=== PATIENT | male | born 1970 | race Caucasian/White ===

== ENCOUNTER 2020-02-14 14:10 | Emergency (ER) | payer MEDICAID ==
[~2020-02-14] VITALS: Ht 182.9 cm; Wt 73.0 kg
[2020-02-14] MEDS ORDERED: ONDANSETRON HCL 4MG/2ML INJ IV STA (17:46)
[2020-02-14] MEDS ORDERED: MAGNESIUM/ALUMINUM HYDROXIDE/SIMETHICONE 30ML UDC PO STA (17:46)
[2020-02-14] MEDS ORDERED: FAMOTIDINE 20MG/2ML VIAL IV STA (17:46)
[2020-02-14] MEDS ORDERED: VISCOUS LIDOCAINE 2% 15 ML UDC PO STA (17:46)
[2020-02-14] MEDS ORDERED: SODIUM CHLORIDE 0.9% 1,000 ML IV ONE (17:46)
[2020-02-14 18:26] LABS: BASOPHILS % 0.7 % (0.0-2.0); EOSINOPHILS % 1.2 % (0.0-5.0); HEMATOCRIT. 48.9 % (42.0-52.0); HEMOGLOBIN. 16.8 g/dL (14.0-18.0); LYMPHOCYTES % 51.3 % (20.0-50.0); MEAN CORPUSCULAR HEMOGLOBIN 37.6 pg (28.0-32.0); MEAN CORPUSCULAR VOLUME 109.3 fL (80.0-94.0); NEUTROPHILS % 38.8 % (40.0-76.0); RED BLOOD CELL COUNT 4.47 mill/uL (4.7-6.1); RED CELL DISTRIBUTION WIDTH 13.2 % (11.6-14.6)
[2020-02-14 18:58] LABS: CHLORIDE 105 mEq/L (98-107)
[2020-02-14 19:54] LABS: PLATELET 155 x1000/uL (130-400)
[2020-02-14 19:55] LABS: MEAN PLATELET VOLUME 8.3 fl (7.4-10.4)
[2020-02-14 20:07] VITALS: BP 138/71
== END 2020-02-14 20:09 | disposition home or self-care (01) ==
LOC: ER 14:10
DX: R10.84 Generalized abdominal pain (principal); R79.89 Other specified abnormal findings of blood chemistry; R03.0 Elevated blood-pressure reading, without diagnosis of hypertension
CPT/HCPCS: 36415; 74176; 80053; 83690; 85025; 96361; 96374; 96375; 99284; J2405; J3490; J7030

== ENCOUNTER 2021-01-19 14:57 | Emergency (ER) | payer MEDICAID ==
[~2021-01-19] VITALS: Ht 180.3 cm; Wt 80.0 kg
[2021-01-19] MEDS ORDERED: HYDROCODONE/ACETAMINOPHEN 5/325MG TABLET PO ONE ×2 (17:30→19:45)
[2021-01-19 17:34] LABS: BASOPHILS % 0.4 % (0.0-2.0); HEMATOCRIT. 50.3 % (42.0-52.0); HEMOGLOBIN. 16.9 g/dL (14.0-18.0); LYMPHOCYTES % 53.1 % (20.0-50.0); MEAN CORPUSCULAR HEMOGLOBIN 35.3 pg (28.0-32.0); MEAN CORPUSCULAR VOLUME 105.4 fL (80.0-94.0); MEAN PLATELET VOLUME 7.2 fl (7.4-10.4); MONOCYTES % 7.3 % (2.0-8.0); NEUTROPHILS % 37.2 % (40.0-76.0); PLATELET 129 x1000/uL (130-400); RED BLOOD CELL COUNT 4.77 mill/uL (4.7-6.1); RED CELL DISTRIBUTION WIDTH 15.5 % (11.6-14.6)
[2021-01-19 17:38] LABS: CHLORIDE 104 mEq/L (98-107)
[2021-01-19 17:48] LABS: *AMPHETAMINES SCREEN URINE NEGATIVE (NEGATIVE); CANNABINOID URINE SCREEN PRESUMTIVE POSITIVE (NEGATIVE); PHENCYCLIDINE URINE SCREEN NEGATIVE (NEGATIVE)
[2021-01-19 17:49] LABS: *BARBITURATES SCREEN URINE NEGATIVE (NEGATIVE); *BENZODIAZEPINES SCREEN URINE NEGATIVE (NEGATIVE); *COCAINE SCREEN URINE NEGATIVE (NEGATIVE); METHADONE URINE SCREEN NEGATIVE (NEGATIVE); OPIATES URINE SCREEN NEGATIVE (NEGATIVE)
[2021-01-19 17:51] LABS: ETHANOL BLOOD 290 mg/dL
[2021-01-19] MEDS ORDERED: LIDOCAINE HCL/EPINEPHRINE 1%-EPI 1:100,000 20 ML VIAL INFIL ONE (18:15)
[2021-01-19 20:25] VITALS: BP 126/84
== END 2021-01-19 20:30 | disposition home or self-care (01) ==
LOC: ER 14:57
DX: F10.129 Alcohol abuse with intoxication, unspecified (principal); Y90.8 Blood alcohol level of 240 mg/100 ml or more; S01.111A Laceration without foreign body of right eyelid and periocular area, initial encounter; R74.01 Elevation of levels of liver transaminase levels; W01.190A Fall on same level from slipping, tripping and stumbling with subsequent striking against furniture, initial encounter; F12.90 Cannabis use, unspecified, uncomplicated; Y93.89 Activity, other specified; Y92.89 Other specified places as the place of occurrence of the external cause; Z98.890 Other specified postprocedural states
CPT/HCPCS: 12011; 36415; 70450; 80053; 80305; 80320; 85025; 99284; J3490; G0480

== ENCOUNTER 2022-01-14 14:59 | Emergency (ER) | payer MEDICAID ==
[~2022-01-14] VITALS: Ht 177.8 cm; Wt 73.0 kg
[2022-01-14 15:03] VITALS: BP 128/83
[2022-01-14] MEDS ORDERED: ACETAMINOPHEN 325MG TABLET PO ONE (15:15)
[2022-01-14] MEDS ORDERED: BACITRACIN ZINC OINT UDPKT TOP ONE (15:15)
[2022-01-14] MEDS ORDERED: TETANUS, DIPHTHERIA, PERTUSSIS VAC/PF 0.5ML (>10YR OLD) IM ONE ×2 (15:15→17:30)
[2022-01-14] MEDS ORDERED: LIDOCAINE HCL/EPINEPHRINE 1%-EPI 1:100,000 20 ML VIAL INFIL ONE (15:15)
[2022-01-14] MEDS ORDERED: ACETAMINOPHEN 325MG TABLET PO NR (17:30)
[2022-01-14] MEDS ORDERED: BACITRACIN ZINC OINT UDPKT TOP NR (17:30)
[2022-01-14] MEDS ORDERED: LIDOCAINE HCL/EPINEPHRINE 1%-EPI 1:100,000 20 ML VIAL INFIL NR (17:30)
[2022-01-14] MEDS ORDERED: TOPUD MT (18:02)
== END 2022-01-14 19:05 | disposition home or self-care (01) ==
LOC: ER 14:59
DX: S01.81XA Laceration without foreign body of other part of head, initial encounter (principal); X99.9XXA Assault by unspecified sharp object, initial encounter; Y93.89 Activity, other specified; Y92.488 Other paved roadways as the place of occurrence of the external cause; F12.90 Cannabis use, unspecified, uncomplicated; F10.10 Alcohol abuse, uncomplicated; Y90.9 Presence of alcohol in blood, level not specified; G40.909 Epilepsy, unspecified, not intractable, without status epilepticus
CPT/HCPCS: 12011; 70450; 70486; 90471; 90715; 99284; J3490

== ENCOUNTER 2022-02-05 05:25 | Emergency (ER) | payer MEDICAID ==
[~2022-02-05] VITALS: Ht 185.4 cm; Wt 69.9 kg
[~2022-02-05 05:25] MED LIST: TOPUD MT
[2022-02-05 06:30] VITALS: BP 134/86
== END 2022-02-05 06:32 | disposition home or self-care (01) ==
LOC: ER 05:25
DX: Z48.02 Encounter for removal of sutures (principal); F12.10 Cannabis abuse, uncomplicated; Z86.59 Personal history of other mental and behavioral disorders
CPT/HCPCS: 99281